=== PATIENT | male | born 1950 | race Caucasian/White ===

== ENCOUNTER 2020-11-23 07:20 | Emergency (ER) | payer OTHER ==
[2020-11-23 07:45] VITALS: PULSE 65; BMI 25.0
[2020-11-23] MEDS ORDERED: ACETAMINOPHEN 1000 MG/100 ML VIAL (NON FORMULARY) IVPB ONE (08:04)
[2020-11-23] MEDS ORDERED: ACETAMINOPHEN INJECTION 100 ML IVPB ONE (08:35)
[2020-11-23 09:33] LABS: HEMATOCRIT 38.5 % (35.4-49); MCH 32.2 pg (25.7-33.7); MCHC 33.8 g/dl (32.0-35.9); MEAN CELL VOLUME 95.5 fl (80-96); MEAN PLT VOLUME 7.5 fl (7.5-11.1); PLATELET COUNT 204 10^3/uL (134-434); RBC 4.03 M/mm3 (4.00-5.60)
[2020-11-23 09:49] LABS: CHLORIDE 106 mmol/L (98-107); SODIUM 138 mmol/L (136-145)
[2020-11-23 09:53] LABS: ALBUMIN 3.5 g/dl (3.4-5.0); ANION GAP 4 MMOL/L (8-16); BLOOD UREA NITROGEN 23.5 mg/dL (7-18); CALCIUM 8.5 mg/dL (8.5-10.1); CO2 28 mmol/L (21-32); GLUCOSE,RANDOM 113 mg/dL (74-106)
[2020-11-23 09:56] LABS: SGOT/AST 25 U/L (15-37); SGPT/ALT 29 U/L (13-61)
[2020-11-23 09:58] LABS: BILIRUBIN,TOTAL 0.4 mg/dL (0.2-1); TOT PROT 6.6 g/dl (6.4-8.2)
[2020-11-23 09:59] LABS: ALK PHOS 92 U/L (45-117)
[2020-11-23 10:39] LABS: ANISOCYTOSIS 0; HELMET CELLS 0; HOWELL-JOLLY BODIES 0; MACROCYTOSIS 0; OVALOCYTE 0; PLATELET ESTIMATE NORMAL; ROULEAU 0; SICKELED CELLS 0; TARGET CELLS 0; TEAR DROP CELLS 0; TOXIC GRANULATION 0
[2020-11-23 12:42] VITALS: BP 110/85; TEMP 98.2
[2020-11-23] MEDS ORDERED: BACITRACIN 0.9 GM PACKET ONE (12:57)
== END 2020-11-23 13:18 ==
LOC: JER 07:20
PROC: 0HQ0XZZ Repair Scalp Skin, External Approach (ICD-10-PCS; principal; 2020-11-23)
PROC: 3E0333Z Introduction of Anti-inflammatory into Peripheral Vein, Percutaneous Approach (ICD-10-PCS; 2020-11-23)
DX: S01.81XA Laceration without foreign body of other part of head, initial encounter (principal); V49.40XA Driver injured in collision with unspecified motor vehicles in traffic accident, initial encounter
CPT/HCPCS: 36415; 70450-TC; 71275-TC; 72125-TC; 74174-TC; 80053; 82550; 84484; 85025; 93005; 93010; 99285-25; J0131; Q9967